=== PATIENT | male | born 1970 | race Caucasian/White ===

== ENCOUNTER 2025-01-15 20:46 | Emergency (ER) | payer MEDICAID, SELFPAY ==
--- NOTE | 2025-01-15 21:19 | PD.EDADDENDU ---
Emergency Room Addendum Addendum Narrative: I was told the patient left without being seen. Uvaldo Dela Cruz MD
--- NOTE | 2025-01-15 23:17 | PD.EDADDENDU ---
Emergency Room Addendum Addendum Narrative: I was told the patient left without being seen. Uvaldo Dela Cruz MD
== END 2025-01-15 21:05 | disposition left against medical advice (07) ==
LOC: SERX 21:14
PROVIDERS: Emergency Provider Emergency Medicine
DX: Z53.21 Procedure and treatment not carried out due to patient leaving prior to being seen by health care provider (principal)